=== PATIENT | male | born 1955 | race Caucasian/White ===

== ENCOUNTER 2019-05-20 05:48 | Observation (INO) | payer OTHER ==
[~2019-05-20] VITALS: Ht 190.5 cm; Wt 135.4 kg
[~2019-05-20 05:48] MED LIST: LISI-167 PO
[2019-05-20] MEDS ORDERED: LACTATED RINGERS 1,000 ML IV SCH (06:26)
[2019-05-20] MEDS ORDERED: LIDOCAINE 1%-EPI 1:100K, 20ML ONE (06:56)
[2019-05-20] MEDS ORDERED: MIDAZOLAM 1 MG/ML, 2ML ONE (07:18)
[2019-05-20] MEDS ORDERED: FENTANYL PF 250 MCG/5ML ONE (07:19)
[2019-05-20] MEDS ORDERED: SUCCINYLCHOLINE 20 MG/ML, 10ML ONE (07:28)
[2019-05-20] MEDS ORDERED: DEXAMETHASONE 4 MG/ML, 1ML ONE ×3 (07:28→07:42)
[2019-05-20] MEDS ORDERED: PROPOFOL 10 MG/ML, 20ML ONE ×2 (08:09)
[2019-05-20] MEDS ORDERED: CEFAZOLIN 1,000 MG ONE ×2 (08:09)
[2019-05-20] MEDS ORDERED: ONDANSETRON 2MG/ML, 2ML ONE (08:10)
[2019-05-20] MEDS ORDERED: EPHEDRINE 50 MG/ML, 1ML ONE (08:19)
[2019-05-20] MEDS ORDERED: LABETALOL 5MG/ML, 20ML IV PRN (08:30)
[2019-05-20] MEDS ORDERED: ONDANSETRON 2MG/ML, 2ML IV PRN ×2 (08:30→13:00)
[2019-05-20] MEDS ORDERED: METOPROLOL 1 MG/ML, 5ML IV PRN (08:30)
[2019-05-20] MEDS ORDERED: HYDROmorphone 2 MG/ML, 1ML IVPush PRN ×2 (08:30→11:00)
[2019-05-20] MEDS ORDERED: hydrALAzine 20 MG/ML, 1ML IV PRN (08:30)
[2019-05-20] MEDS ORDERED: FENTANYL PF 100 MCG/2ML IV PRN (08:30)
[2019-05-20] MEDS ORDERED: MEPERIDINE/PF 25MG/ML,1ML IVPush PRN (08:30)
[2019-05-20] MEDS ORDERED: LORazepam 2 MG/ML, 1ML IVPush PRN (08:30)
[2019-05-20] MEDS ORDERED: OXYcodone 5 MG/5 ML ORAL.SOL UDC PO PRN ×2 (08:30→11:00)
[2019-05-20] MEDS ORDERED: ALBUTEROL SULFATE 2.5 MG/3 ML NPPB PRN (08:30)
[2019-05-20] MEDS ORDERED: ACETAMINOPHEN 325 MG TABLET PO PRN (08:30)
[2019-05-20] MEDS ORDERED: METOCLOPRAMIDE 5 MG/ML, 2ML IV PRN (08:30)
[2019-05-20] MEDS ORDERED: OXYcodone 5 MG/5 ML ORAL.SOL UDC ONE (11:24)
[2019-05-20] MEDS ORDERED: FENTANYL PF 100 MCG/2ML ONE (11:24)
[2019-05-20 12:18] VITALS: BP 145/88
[2019-05-20 13:29] VITALS: BP 134/85
[2019-05-20] MEDS ORDERED: HYDROmorphone 1 MG/ML, 1ML INJ IV PRN (15:00)
[2019-05-20 19:22] VITALS: BP 160/92
[2019-05-20] MEDS: LACTATED RINGERS 1,000 ML IV SCH (20:00)
[2019-05-20] MEDS: SODIUM CHLORIDE FLUSH 10ML SYR IVF SCH (20:32)
[2019-05-20 23:32] VITALS: BP 117/74
[2019-05-21 04:07] VITALS: BP 134/86
[2019-05-21] MEDS: LACTATED RINGERS 1,000 ML IV SCH (05:23)
[2019-05-21 08:04] VITALS: BP 123/77
[2019-05-21] MEDS: SODIUM CHLORIDE FLUSH 10ML SYR IVF SCH (08:39)
[2019-05-21] MEDS ORDERED: LISINOPRIL 10 MG TABLET PO SCH (09:00)
[2019-05-21 13:15] VITALS: BP 132/80
[2019-05-21] MEDS ORDERED: HYDR-3653 PO (14:14)
== END 2019-05-21 14:25 | disposition home or self-care (01) ==
LOC: OUT 05:48 → 4NE 12:00 → OUT 14:20 → 4NE 14:25 → DCLOUNGE 05-21 14:16
PROVIDERS: ADMIT Specialist; ATTEND Specialist
DX: E04.2 Nontoxic multinodular goiter (principal); I10 Essential (primary) hypertension; E66.9 Obesity, unspecified; G47.33 Obstructive sleep apnea (adult) (pediatric)
CPT/HCPCS: 60220; 88307; C1760; G0378; J0330; J0690; J1100; J2250; J2405; J2704; J3010; J3490; J7120

== ENCOUNTER 2021-01-12 07:34 | Outpatient (CLI) | payer OTHER ==
[~2021-01-12 07:34] MED LIST changes: +HYDR-3653 PO
== END 2021-01-12 23:59 | disposition home or self-care (01) ==
LOC: RAD 07:34
PROVIDERS: ATTEND Family Medicine
DX: M25.561 Pain in right knee (principal)